=== PATIENT | male | born 1965 | race Asian ===

== ENCOUNTER 2016-07-16 23:37 | Emergency (ER) | payer OTHER ==
[2016-07-16 23:48] VITALS: BP 126/87
[2016-07-17] MEDS ORDERED: Pseudoephedrine TAB* 30 MG PO ONE (00:03)
[2016-07-17] MEDS ORDERED: Oxymetazoline 0.05% NASAL SPR* 15 ML BTL BOTH NARES ONE (00:03)
--- NOTE | 2016-07-17 00:15 | ED ---
Throat Pain/Nasal Congestion - HPI Summary HPI Summary: 51M presents with sinus congestion for 3 hours. He used claritin and a medication that had claritin and phenylephrine in it for his symptoms without relief. He has history of allergies. He denies any fever, sore throat, or cough. He admits to post nasal drip. He states he is unable to breath out of his nose and so he cant sleep. He denies any chest pain or SOB. - History of Current Complaint Chief Complaint: EDUpperRespComplaint Time Seen by Provider: 07/16/16 23:51 - Allergies/Home Medications Allergies/Adverse Reactions: Allergies Allergy/AdvReac Type Severity Reaction Status Date / Time No Known Allergies Allergy Verified 07/18/15 13:15 PMH/Surg Hx/FS Hx/Imm Hx Endocrine/Hematology History: Denies: Hx Anticoagulant Therapy, Hx Diabetes - denies, Hx Thyroid Disease Cardiovascular History: Denies: Hx Hypertension, Hx Pacemaker/ICD Respiratory History: Reports: Hx Asthma Denies: Hx Chronic Obstructive Pulmonary Disease (COPD) History: Denies: Hx Renal Disease Neurological History: Denies: Hx Seizures Psychiatric History: Denies: Hx Substance Abuse Infectious Disease History: Yes Infectious Disease History: 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 Negative: Sore Throat Negative: Chest Pain Negative: Shortness Of Breath All Other Systems Reviewed And Are Negative: Yes Physical Exam Triage Information Reviewed: Yes Vital Signs On Initial Exam: Initial Vitals Temp Pulse Resp BP Pulse Ox 98.3 F 79 18 126/87 99 07/16/16 23:44 07/16/16 23:44 07/16/16 23:44 07/16/16 23:44 07/16/16 23:44 Vital Signs Reviewed: Yes Appearance: Positive: Well-Appearing Skin: Positive: Warm, Dry Head/Face: Positive: Normal Head/Face Inspection Eyes: Positive: Normal, Conjunctiva Clear ENT: Positive: Pharynx normal, Nasal congestion, TMs normal, Other - congested sounding on exam, neg sinus tenderness Neck: Positive: Supple, Nontender, No Lymphadenopathy Respiratory/Lung Sounds: Positive: Clear to Auscultation, Breath Sounds Present Cardiovascular: Positive: Normal, RRR Diagnostics - Vital Signs Vital Signs Temp Pulse Resp BP Pulse Ox 07/16/16 23:47 98.4 F 76 18 126/87 99 07/16/16 23:44 98.3 F 79 18 126/87 99 - Laboratory Lab Statement: Any lab studies that have been ordered have been reviewed, and results considered in the medical decision making process. EENT Course/Dx - Course Course Of Treatment: 51M presents with sinus congestion for 3 hours. states unable to sleep due to being unable to breath through nose. tried claritin prior to arrival. has history of allergies. will give afrin but told can only use for 2 days, sudafed and flonase. patient understands and agrees with plan - Differential Diagnoses Differential Diagnoses: Allergic Rhinitis, Sinusitis, URI/Bronchitis - Diagnoses Provider Diagnoses: Acute rhinosinusitis Discharge - Discharge Plan Condition: Good Disposition: HOME Prescriptions: Fluticasone NASAL SPRAY 50MCG* [Flonase NASAL SPRAY 50MCG*] 1 spray BOTH NARES DAILY #1 btl Patient Education Materials: Rhinosinusitis (ED) Referrals: Isela Rodriguez MD [Medical Doctor] - Additional Instructions: Use nasal spray (Afrin) from ER two spray twice a day for 2 days, first dose given in ED, DO NOT TAKE MORE THAN TWO DAYS Take flonase one spray daily for allergy symptos Take antihistamine once a day Buy sudafed at the pharmacy counter Use saline spray in nose as much as needed Follow up with primary care physician within a week for no improvement Return to ED with any new or worsening symptoms
== END 2016-07-17 00:38 | disposition home or self-care (01) ==
LOC: ED 23:37
DX: J01.90 Acute sinusitis, unspecified (principal); Z87.891 Personal history of nicotine dependence
CPT/HCPCS: 99282; A9270-GY

== ENCOUNTER 2018-06-24 12:02 | Emergency (ER) | payer OTHER ==
[2018-06-24 13:07] VITALS: BP 124/87
[2018-06-24] MEDS ORDERED: Amoxicillin/Clavulanate TAB* 875 MG PO ONE (14:39)
[2018-06-24] MEDS ORDERED: predniSONE TAB* 20 MG PO ONE (14:39)
--- NOTE | 2018-06-24 14:44 | UC ---
Throat Pain/Nasal Placiod HPI - HPI Summary HPI Summary: 53-year-old male comes in with a chief complaint of sore throat and having a lot of sputum in his throat. His been going on for 2 days. He feels his throat is tight because of all the sputum is having a hard time clearing it. He did cough up a lot of sputum and then it's improved right now. He has been able to eat and drink. Is not having any shortness of breath at this time however when a lot of sputum couple hours ago it did cause him some problems with breathing. He does have asthma. Patient has not had any recent fevers. Coughing up the sputum does help with the breathing. - History of Current Complaint Chief Complaint: UCGeneralIllness Stated Complaint: THROAT /CHEST CONGEST Time Seen by Provider: 06/24/18 14:39 Pain Intensity: 0 - Allergies/Home Medications Allergies/Adverse Reactions: Allergies Allergy/AdvReac Type Severity Reaction Status Date / Time No Known Allergies Allergy Verified 06/24/18 13:55 PMH/Surg Hx/FS Hx/Imm Hx Previously Healthy: Yes Respiratory History: Asthma Other History Of: Negative For: Anticoagulant Therapy - Surgical History Surgical History: None - Family History Known Family History: Positive: Hypertension - Social History Alcohol Use: Rare Substance Use Type: None Smoking Status (MU): Former Smoker - Immunization History Most Recent Tetanus Shot: UTD Review of Systems All Other Systems Reviewed And Are Negative: Yes Constitutional: Positive: Negative Skin: Positive: Negative Eyes: Positive: Negative ENT: Positive: Sore Throat Respiratory: Positive: Other - see hpi Cardiovascular: Positive: Negative Gastrointestinal: Positive: Negative Motor: Positive: Negative Neurovascular: Positive: Negative Musculoskeletal: Positive: Negative Neurological: Positive: Negative Psychological: Positive: Negative Is Patient Immunocompromised?: No Physical Exam Triage Information Reviewed: Yes Appearance: No Pain Distress, Well-Nourished, Ill-Appearing - mild Vital Signs: Initial Vital Signs Temp 98.5 F 06/24/18 13:01 Pulse 89 06/24/18 13:01 Resp 17 06/24/18 13:01 BP 124/87 06/24/18 13:01 Pulse Ox 98 06/24/18 13:01 Vital Signs Reviewed: Yes Eye Exam: Normal Eyes: Positive: Conjunctiva Clear ENT: Positive: Pharyngeal erythema, Tonsillar swelling - 2+ b/l; no peritonsillar abscess seen on exam, Uvula midline. Negative: Muffled voice, Hoarse voice Neck exam: Normal Neck: Positive: Supple Respiratory: Positive: Lungs clear, Normal breath sounds, No respiratory distress Cardiovascular: Positive: RRR Musculoskeletal Exam: Normal Musculoskeletal: Positive: Strength Intact, ROM Intact Neurological Exam: Normal Neurological: Positive: Alert, Muscle Tone Normal Psychological Exam: Normal Psychological: Positive: Age Appropriate Behavior Skin Exam: Normal Throat Pain/Nasal Course/Dx - Course Course Of Treatment: At this time in clinic the patient does not have any airway obstruction at this time in clinic the patient does not have any airway obstruction. By history it sounds like the sputum was thicker and more difficult to breathe through a couple hours ago but that has improved. I do not hear any stridor on examination is in no respiratory distress. Gave him 60 mg prednisone by mouth and Augmentin 800 mg by mouth here in clinic and I let him know that if he feels like his airway is closing he needs to either call an ambulance or go directly to the emergency department. - Differential Dx/Diagnosis Provider Diagnosis: Pharyngitis Discharge - Sign-Out/Discharge Documenting (check all that apply): Patient Departure All imaging exams completed and their final reports reviewed: No Studies - Discharge Plan Condition: Stable Disposition: HOME Prescriptions: Amoxicillin/Clavulanate TAB* [Augmentin TAB 875*] 875 mg PO BID #19 tab predniSONE TAB* [Deltasone 20 MG TAB*] 40 mg PO DAILY #8 tab Patient Education Materials: Pharyngitis (ED) Referrals: Bhavik Gray MD [Primary Care Provider] - Additional Instructions: FOLLOW UP WITH YOUR DOCTOR IF NOT COMPLETELY IMPROVED. GET REEVALUATED SOONER FOR ANY WORSENING OF YOUR CONDITION OR ANY QUESTIONS OR CONCERNS. - Billing Disposition and Condition Condition: STABLE Disposition: Home
== END 2018-06-24 14:55 | disposition home or self-care (01) ==
LOC: UCEAST 12:02
DX: J02.9 Acute pharyngitis, unspecified (principal); Z87.891 Personal history of nicotine dependence
CPT/HCPCS: 99213; A9270-GY; G0463; J7512

== ENCOUNTER 2018-06-24 18:44 | Emergency (ER) | payer OTHER ==
--- NOTE | 2018-06-24 20:11 | ED ---
Throat Pain/Nasal Congestion - HPI Summary HPI Summary: Patient complains of productive cough and expectorating phlegm frequently 4 days. Patient was seen at [facility] and was given Augmentin and prednisone. Patient comes to the ED, states medicines lasts for only 1 hour and then symptoms returned. Diagnosis at [facility] was pharyngitis. Patient states able to tolerate by mouth fluids and food. Denies N/V, SOB, fever, sore throat, PARDO, neck stiffness, CP, SOB, N/V/D, abdominal pain, change in urine, change in BM. Medical history is none. - History of Current Complaint Chief Complaint: EDThroatPain Time Seen by Provider: 06/24/18 19:45 Hx Obtained From: Patient Onset/Duration: Gradual Onset, Lasting Days Severity: Moderate Associated Signs And Symptoms: Positive: Negative Cough: Productive - Allergies/Home Medications Allergies/Adverse Reactions: Allergies Allergy/AdvReac Type Severity Reaction Status Date / Time No Known Allergies Allergy Verified 06/24/18 13:55 PMH/Surg Hx/FS Hx/Imm Hx Endocrine/Hematology History: Denies: Hx Anticoagulant Therapy, Hx Diabetes - denies, Hx Thyroid Disease Cardiovascular History: Denies: Hx Hypertension, Hx Pacemaker/ICD Respiratory History: Reports: Hx Asthma - seasonal Denies: Hx Chronic Obstructive Pulmonary Disease (COPD) GI History: Denies: Hx Ulcer History: Denies: Hx Renal Disease Sensory History: Denies: Hx Eye Prosthesis Opthamlomology History: Denies: Hx Legally Blind EENT History: Denies: Hx Deafness Neurological History: Denies: Hx Dementia, Hx Seizures Psychiatric History: Denies: Hx Autism, Hx Substance Abuse Infectious Disease History: No Infectious Disease History: 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 Denies: Hx Hepatitis, Hx Human Immunodeficiency Virus (HIV), Traveled Outside the [place] in Last 30 Days - Family History Known Family History: Positive: Hypertension - Social History Alcohol Use: Rare Substance Use Type: Reports: None Smoking Status (MU): Former Smoker Review of Systems Constitutional: Negative Eyes: Negative Positive: Other Cardiovascular: Negative Respiratory: Negative Gastrointestinal: Negative Genitourinary: Negative Musculoskeletal: Negative Skin: Negative Neurological: Negative Psychological: Normal All Other Systems Reviewed And Are Negative: Yes Physical Exam - Summary Physical Exam Summary: ENT exam unremarkable. Lung sounds clear to auscultation bilaterally. RRR. Positive nasal congestion. Negative facial pressure. Triage Information Reviewed: Yes Vital Signs On Initial Exam: Initial Vitals Temp Pulse Resp BP Pulse Ox 98.5 F 112 20 158/91 96 06/24/18 18:46 06/24/18 18:46 06/24/18 18:46 06/24/18 18:46 06/24/18 18:46 Vital Signs Reviewed: Yes Appearance: Positive: Well-Appearing Skin: Positive: Warm Head/Face: Positive: Normal Head/Face Inspection Eyes: Positive: Normal ENT: Positive: Normal ENT inspection Respiratory/Lung Sounds: Positive: Clear to Auscultation Cardiovascular: Positive: Normal Abdomen Description: Positive: Nontender Musculoskeletal: Positive: Normal Neurological: Positive: Normal Psychiatric: Positive: Normal AVPU Assessment: Alert - Lu Coma Scale Best Eye Response: 4 - Spontaneous Best Motor Response: 6 - Obeys Commands Best Verbal Response: 5 - Oriented Coma Scale Total: 15 Diagnostics - Vital Signs Vital Signs Temp Pulse Resp BP Pulse Ox 06/24/18 18:46 98.5 F 112 20 158/91 96 - Laboratory Lab Statement: Any lab studies that have been ordered have been reviewed, and results considered in the medical decision making process. EENT Course/Dx - Course Course Of Treatment: Patient complains of productive cough and expectorating phlegm frequently 4 days. Patient was seen at [facility] today and was given Augmentin and prednisone. Patient comes to the ED, states medicines lasts for only 1 hour and then symptoms returned. Diagnosis at [facility] was pharyngitis. Patient states able to tolerate by mouth fluids and food. Denies N/V, SOB, fever, sore throat, PARDO, neck stiffness, CP, SOB, N/V/D, abdominal pain, change in urine, change in BM. Medical history is none. Physical exam:ENT exam unremarkable. Lung sounds clear to auscultation bilaterally. RRR. Positive nasal congestion. Negative facial pressure. Vital signs within normal limits. Patient tolerated a whole glass of water without regurgitation. Patient advised to continue taking Augmentin and prednisone. - Diagnoses Provider Diagnoses: Pharyngitis Discharge - Sign-Out/Discharge Documenting (check all that apply): Patient Departure Patient Received Moderate/Deep Sedation with Procedure: No - Discharge Plan Condition: Stable Disposition: HOME Patient Education Materials: Pharyngitis (ED) Referrals: Bhavik Gray MD [Primary Care Provider] - Additional Instructions: Continue taking medications prescribed by urgent care as directed. Return to the ED for any new or worsening symptoms. - Billing Disposition and Condition Condition: STABLE Disposition: Home
[2018-06-24 20:17] VITALS: BP 141/91
== END 2018-06-24 20:16 | disposition home or self-care (01) ==
LOC: ED 18:44
DX: J02.9 Acute pharyngitis, unspecified (principal); R05 Cough; J45.909 Unspecified asthma, uncomplicated; Z86.11 Personal history of tuberculosis; Z87.891 Personal history of nicotine dependence
CPT/HCPCS: 99281